=== PATIENT | male | born 1950 | race Caucasian/White ===

== ENCOUNTER 2023-07-17 16:27 | Outpatient (CLI) | payer OTHER, SELFPAY ==
--- NOTE | ~2023-07-17 | MR_ITS ---
EXAMINATION: MR foot LT wo con DATE: 07/17/2023 18:25 INDICATION: Ganglion, left ankle and foot. TECHNIQUE: Magnetic resonance imaging (MRI) of the left foot was performed without intravenous contra st. COMPARISON: Left foot radiographs 06/25/2023 FINDINGS: Bone alignment is normal. No fracture. There is mild osteoarthritis of first metatarsophala ngeal joint and some of the interphalangeal joints. Lisfranc ligament is normal. The flexor and exten sor tendons are normal. The musculature is normal. There is a 12 x 5 x 5 mm ganglion cyst plantar to first metatarsophalangeal joint medially. IMPRESSION: 1. Ganglion cyst plantar to first metatarsophalangeal joint medially. 2. Mild polyarticular osteoarthritis. Reviewed, dictated and finalized at location A. ING INSPECTOR
== END 2023-07-17 16:28 | disposition home or self-care (01) ==
LOC: ANHIMG 16:28
PROVIDERS: PCP Internal Medicine; Visit Provider Orthopaedic Surgery
DX: M67.472 Ganglion, left ankle and foot (principal); M19.072 Primary osteoarthritis, left ankle and foot
CPT/HCPCS: 73718

== ENCOUNTER 2023-08-01 10:51 | Outpatient (CLI) | payer OTHER, SELFPAY ==
--- NOTE | 2023-08-01 11:00 | ECG_ITS ---
Measurements Intervals [place] Rate: 59 P: -14 NV: 224 QRS: 17 QRSD: 93 T: 8 QT: 375 QTc: 372 Interpretive Statements SINUS BRADYCARDIA WITH FIRST DEGREE AV BLOCK BASELINE ARTIFACT- I, II, III, AVR, AVL, AVF BORDERLINE ECG NO PREVIOUS ECG AVAILABLE FOR COMPARISON Electronically Signed On 08-01-2023 11:31:00 PROPERTY UTILIZATION OFFICER by Yong Martin D.O.
== END 2023-08-01 10:52 | disposition home or self-care (01) ==
PROVIDERS: PCP Internal Medicine; Visit Provider Orthopaedic Surgery
DX: I10 Essential (primary) hypertension (principal); Z01.818 Encounter for other preprocedural examination; I44.0 Atrioventricular block, first degree
CPT/HCPCS: 93005

== ENCOUNTER 2023-08-07 03:53 | Day surgery (SDC) | payer OTHER, SELFPAY ==
[2023-07-31 13:22] VITALS: BMI 32.7
--- NOTE | 2023-07-31 13:40 | PC.NURSE ---
Report to the Outpatient Waiting Room, entrance under the green pavilion located off [facility], at time __1000 on date __08/07/23 . Planned Procedure Time: ___1200 . Time changes happen often and if your time is changed the preop area will call you the afternoon before. - You and your visitor will be asked to self-screen and do not enter if you have any COVID symptoms. - A mask is optional within the hospital at this time. Patients may have clear liquids (water, carbonated beverages, clear teas, apple juice) until 3 hours prior to surgery (0900 AM) with a maximum of 20 ounces. - No food from midnight until time of surgery - Infants may have breast milk until 4 hours before surgery, infant formula 6 hours prior to surgery. - Children will be allowed to drink immediately following surgery. If applicable, please bring a bottle or sippy cup to assist with drinking. Juice, water, soda, and popsicles are readily available. For infants on formula, please bring formula the day of surgery. Pacifiers are allowed. Take the following medications with a SIP of water the morning of surgery: NONE DO NOT STOP ANY OF YOUR OTHER PRESCRIPTION MEDICATIONS PRIOR TO SURGERY ?EXCEPT THE FOLLOWING Medications to discontinue per DR. FRANCO - _MELOXICAM 7 DAYS PRIOR TO SURGERY, Date to take last dose OF TODAY (07/31/23)_ Medications to discontinue per ANESTHESIA - _VITAMINS 3 DAYS PRIOR TO SURGERY, Date to take last dose 08/03/23_ Please no make-up, nail indonesian, hairspray, perfume, deodorant, or body powder the day of surgery. No jewelry (including any body piercings) or valuables the day of surgery, leave them at home. Please take a shower or bath the night before, or the morning of, surgery with an antibacterial soap. Wear comfortable, loose fitting clothing. Children are encouraged to wear pajamas. - Jewelry must be removed prior to entering the operating room. Rings and piercings that are not removed may be cut off. - The hospital will not accept responsibility for valuables. - Please leave all valuables, including medications, at home the day of surgery. If you are going home after surgery, a licensed school bus driver/custodian must drive you home. - NO public transportation without another adult if you receive anesthesia. - We recommend that an adult stay with you for 24 hours following discharge. - We also recommend that you do not drive, make important decision, drink alcoholic beverages, or take any drugs that were not prescribed by your health care provider for at least 24 hours after your discharge time. For Pediatric surgeries, we recommend two adults accompany the child home. Follow any additional instructions given to you from your surgeon. If you or anyone in your household have experienced Covid symptoms in the past week, please notify your surgeon or the nurse liaison at the phone number below for possible testing. Telephone instructions given to ___PT and asked if any additional questions and then verbalized understanding. Patient advised to call surgeon office or pre surgery nurse liaison [phone] if any additional questions.
--- NOTE | 2023-08-06 11:38 | PM.IMHP ---
H&P: HPI History of Present Illness Date/Time: 08/06/23 11:38 Chief Complaint: Left hallux pain with swelling Narrative: 72-year-old with pain at the base of the left great toe as well as noted mass in the 1st webspace. Attempted aspiration and injection without relief of symptoms. Patient has pain with daily activity and weight-bearing, difficulty wearing shoes. MRI demonstrates degenerative changes of the metatarsophalangeal joint and cyst formation. Presents for operative treatment. Review of Systems Constitutional: Constitutional: Denies fever(s) Eyes: Eyes: Denies blurry vision ENT: Reports Normal hearing present Cardiovascular: Cardiovascular: Denies chest pain and Denies dyspnea Respiratory: Respiratory: Denies dyspnea and Denies wheezing Gastrointestinal: Gastrointestinal: Denies abdominal pain Genitourinary: Genitourinary: Denies urinary urgency Musculoskeletal: Musculoskeletal: Reports as per HPI and Denies numbness Integumentary/Breasts: Skin/Breast: Denies changing lesions and Denies sores Neurologic: Reports Normal hearing present, Denies behavioral changes, Denies confusion, Denies numbness and Denies convulsions Psychiatric: Psychiatric: Denies behavioral changes, Denies confusion and Denies hallucinations Endocrine: Endocrine: Denies heat intolerance Hematologic/Lymphatic: Hematologic/Lymphatic: Denies easy bleeding Allergic/Immunologic: Allergic/Immunologic: Denies wheezing PMFSH Past Medical History Medical History Ganglion cyst of left foot Hallux rigidus of left foot Social History Social History Smoking packs per day: 0.75 Smoking cigarettes per day: 15.0 Years smoked: 27 Smoking pack-years: 20.25 Smoking status: Former smoker Tobacco type: cigarettes Second hand tobacco smoke exposure: No Smoking end date: 07/21/91 Alcohol intake: current Drinks per week: 7 Substance use: never Substance use type: does not use Living arrangements: with family Occupation/Education: retired Gender identity (if verbalized by the patient): Male Spiritual care concerns: No Meds Home Medications and Allergies Home Medications Medication Instructions Recorded Confirmed Type tamsulosin 0.4 mg capsule (Flomax) 0.4 mg PO DAILY 06/25/23 07/31/23 History cholecalciferol (vitamin D3) 1,250 1,250 mcg PO WEEKLY 07/31/23 07/31/23 History mcg (50,000 unit) capsule cyanocobalamin (vitamin B-12) 1,000 mcg PO DAILY 07/31/23 07/31/23 History 1,000 mcg tablet lisinopril 10 mg tablet 10 mg QAM 07/31/23 07/31/23 History meloxicam 7.5 mg tablet 7.5 mg DAILY 07/31/23 07/31/23 History rosuvastatin 10 mg tablet 10 mg QAM 07/31/23 07/31/23 History Allergies Allergy/AdvReac Type Severity Reaction Status Date / Time bacitracin AdvReac SKIN Verified 07/31/23 13:16 [From Neosporin IRRITATION ([id number])] neomycin AdvReac SKIN Verified 07/31/23 13:16 [From Neosporin IRRITATION ([id number])] polymyxin B AdvReac SKIN Verified 07/31/23 13:16 [From Neosporin IRRITATION ([id number])] Exam Const: General: healthy appearing; No in distress or confusion Orientation/consciousness: oriented to person, oriented to place, oriented to time and No confusion HENMT: Head: normal to inspection, normocephalic and atraumatic Eyes: Conjunctivae: conjunctivae normal Sclera: sclerae normal Neck: Neck: supple and nontender Resp: Effort & Inspection: normal respiratory effort and no audible wheezes Cardio: Rhythm: regular rhythm Skin: General skin exam: no rashes or lesions noted Neuro: General: oriented to person, oriented to place, oriented to time and No confusion Extrem: Right upper extremity: normal to inspection Left upper extremity: normal to inspection Right lower extremity: ankle Details: normal ROM; no tenderness
--- NOTE | 2023-08-06 13:22 | WPDANESEPPF ---
Anes - Initial Pre Proc Eval Procedure: Operation Date: 08/07/23 12:00 Proposed Procedures p Left Hallux Cheilectomy - Julio Lieberman MD Date/Time: 08/06/23 13:22 Surgeon: Julio Lieberman MD Pre Op Diagnosis: left hallux rigidus Patient Data Age: 72 Gender: M Height: 1.73 m Weight: 97.72 kg Allergies Allergy/AdvReac Type Severity Reaction Status Date / Time bacitracin AdvReac SKIN Verified 08/07/23 11:06 [From Neosporin IRRITATION ([id number])] neomycin AdvReac SKIN Verified 08/07/23 11:06 [From Neosporin IRRITATION ([id number])] polymyxin B AdvReac SKIN Verified 08/07/23 11:06 [From Neosporin IRRITATION ([id number])] Home Medications Medication Instructions Recorded Confirmed Type tamsulosin 0.4 mg capsule (Flomax) 0.4 mg PO DAILY 06/25/23 07/31/23 History cholecalciferol (vitamin D3) 1,250 1,250 mcg PO WEEKLY 07/31/23 07/31/23 History mcg (50,000 unit) capsule cyanocobalamin (vitamin B-12) 1,000 mcg PO DAILY 07/31/23 07/31/23 History 1,000 mcg tablet lisinopril 10 mg tablet 10 mg QAM 07/31/23 07/31/23 History meloxicam 7.5 mg tablet 7.5 mg DAILY 07/31/23 07/31/23 History rosuvastatin 10 mg tablet 10 mg QAM 07/31/23 07/31/23 History Patient hx anesthesia problems: none Family hx anesthesia problems: none Results Review: All pre-operative results and documents have been reviewed as part of the pre-operative evaluation. [facility] Past Medical History Medical History (Updated 08/06/23 @ 13:23 by Fredy Lloyd DO) Ganglion cyst of left foot Hallux rigidus of left foot Hyperlipidemia Hypertension Surgical History Surgical History (Updated 08/06/23 @ 13:23 by Fredy Lloyd DO) History of appendectomy Social History Social History Smoking packs per day: 0.75 Smoking cigarettes per day: 15.0 Years smoked: 27 Smoking pack-years: 20.25 Smoking status: Former smoker Tobacco type: cigarettes Second hand tobacco smoke exposure: No Smoking end date: 07/21/91 Alcohol intake: current Drinks per week: 7 Substance use: never Substance use type: does not use Living arrangements: with family Occupation/Education: retired Gender identity (if verbalized by the patient): Male Spiritual care concerns: No Anes - Eval Final PreProcedure Day of Procedure 08/06/23 13:22 Patient weight: obese Heart: regular rate and rhythm Lungs: clear to auscultation Airway: Mallampati scale class II Neurological: alert and oriented Last oral intake: >/= 8 hours ASA classification: III Emergent: no Anesthetic plan: proceed Anesthesia type and monitoring: general LMA and standard monitoring Results Review: All pre-operative results and documents have been reviewed as part of the pre-operative evaluation. Informed Consent: The patient's anesthetic plan and its attendant risks and benefits were discussed with the patient/family/POA. Questions were solicited and answers provided to the satisfaction of the patient/family/POA.
[2023-08-07] VITALS (9 sets, daily range): BP systolic 125–150; BP diastolic 70–92; PULSE 56–595; RESP 14–18; TEMP 36.6–37.4; O2SAT 92–98
[2023-08-07] MEDS: ACETAMINOPHEN 500 MG TABLET 1000 MG PO (10:50)
[2023-08-07] MEDS: LACTATED RINGERS 1,000 ML 30 ML IV CONT ×2 (10:50→13:12)
[2023-08-07] MEDS: KETOROLAC 15 MG/ML VIAL (*BKC) IV PUSH (10:50)
--- NOTE | 2023-08-07 11:55 | WPDHPUPDATE1 ---
History and Physical Update Update Date/Time: 08/07/23 11:55 History and Physical has been reviewed, including an updated exam of the patient. There are NO changes in the patient's condition. Risks, benefits, and alternatives have been discussed and questions answered. Patient agrees to proceed with procedure.
[2023-08-07] MEDS: ceFAZolin 2 GM/D5W 50 ML 2 GM/50 ML BAG IVPB (12:11)
[2023-08-07] MEDS: BUPivacaine HCL 0.5% 10 ML AMP 20 ML INFILTRATE (12:28)
--- NOTE | 2023-08-07 13:31 | P.OP_ITS ---
Procedure Note - Detailed Date of Procedure 08/07/23 Pre-op Diagnosis left hallux rigidus,Ganglion cyst left foot Post-op Diagnosis Same Procedure Performed left hallux cheilectomy, excision ganglion cyst Surgeon Julio Lieberman MD Child Welfare Specialist 1st intellectual property legal assistant Anesthesia General Indications 72-year-old gentleman with left hallux metatarsophalangeal arthritis and cyst formation noted on MRI. Failed injection and aspiration of the cyst. Pain with activity and shoe wear. Presents for operative treatment. Findings Osteophytes 1st metatarsal head. Central articular surface loss of cartilage metatarsal head 2 mm wide 6 mm in length with loose chondral flap. Ganglion cyst plantar medial and lateral from joint. Description of Procedure Patient identified in the preoperative holding. Informed consent given. Operative extremity marked. Patient received intravenous antibiotics. Patient brought to the operating room where underwent general anesthetic by anesthesia team. Positioned supine on operating room table. Time-out performed confirming the patient, site of the surgery and the plan. Left foot prepped and draped usual sterile surgical fashion using a ChloraPrep skin solution. Foot and ankle exsanguinated and a calf tourniquet inflated to 225 mmHg. Longitudinal incision made dorsum of hallux centered over metatarsophalangeal joint with a 15 blade knife. Hemostasis controlled electrocautery. Extensor hallucis tendon retracted medially and a dorsal capsulotomy performed in line with the longitudinal skin incision. Soft tissue released off of the metatarsal to expose the joint. Extensive scar and fibrosis of the joint noted. Rongeur used to remove excess osteophytes. osteotomes then used to resect the dorsal medial and lateral metatarsal exostoses. Bone smoothed with a rongeur, irrigated and bone wax applied. Central metatarsal head articular loss noted. Loose chondral flap removed with 15 blade knife. Ganglion cyst then addressed. Distraction of the toe allowed dissection of the plantar medial capsule. Cyst encountered and sharply excised. A smaller lateral plantar cyst also dissected free and excised. Wound irrigated and capsule closed with 0 Vicryl interrupted suture. Subcutaneous tissue repaired with 3-0 Monocryl interrupted suture and skin repaired with 4-0 nylon running suture. Sterile dressing applied. The patient was then woken from anesthesia, extubated and taken to the recovery room in stable condition. All sponge, needle, instrument counts were correct at the end of the case. Estimated Blood Loss 5 Tourniquet Time Total Tourniquet Time: 45 Minute Drains No Packing No Pathology None sent Complications None Condition Stable Disposition PACU [facility] Billing Surgery - Charge Forward: Surgery Billing ([id number], [id number])
[2023-08-07] MEDS: fentaNYL CITRATE INJ (*CRX) 100 MCG/2 ML VIAL 25 MCG IV PUSH (13:56)
[2023-08-07] MEDS: oxyCODONE HCL (*CRX) 5 MG TAB IR PO (14:41)
== END 2023-08-07 15:20 | disposition home or self-care (01) ==
PROVIDERS: PCP Internal Medicine; Visit Provider Orthopaedic Surgery
PROC: (CPT 28289; principal; 2023-08-07 12:00)
DX: M20.22 Hallux rigidus, left foot (principal); M67.472 Ganglion, left ankle and foot; M25.775 Osteophyte, left foot; E78.5 Hyperlipidemia, unspecified; I10 Essential (primary) hypertension; E66.9 Obesity, unspecified; Z68.33 Body mass index [BMI] 33.0-33.9, adult; Z87.891 Personal history of nicotine dependence
CPT/HCPCS: 28289; 28090; 93005; A9270; J0690; J1100; J1885; J2405; J2704; J3010; J7120